=== PATIENT | female | born 1990 ===

== ENCOUNTER 2022-05-02 17:06 | Emergency (ER) | payer MEDICAID, OTHER ==
[~2022-05-02] VITALS: Ht 162.6 cm; Wt 72.0 kg
[2022-05-02] MEDS ORDERED: MORPHINE SULFATE 4 MG/ML SYR/VIAL IV ONE (17:30)
[2022-05-02] MEDS ORDERED: ONDANSETRON HCL 4 MG/2 ML VIAL IV ONE (17:30)
[2022-05-02] MEDS ORDERED: PANTOPRAZOLE 40 MG/10 ML VIAL INJ IV ONE (17:30)
[2022-05-02] MEDS ORDERED: SODIUM CHLORIDE 0.9% 1,000 ML IVB ONE (17:30)
[2022-05-02 17:44] VITALS: BP 126/75
[2022-05-02 18:01] LABS: Basophils # (auto) 0.1 10 ^3/uL (0-0.2); Eosinophils # (auto) 0.1 10 ^3/uL (0-0.8); Eosinophils % (auto) 2.2 % (0.0-7.0); Hematocrit 32.8 % (36.0-46.0); Hemoglobin 10.9 g/dL (12.2-16.2); Lymphocytes # (auto) 1.7 10 ^3/uL (0.4-5.4); Lymphocytes % (auto) 27.7 % (10.0-50.0); Mean Corpuscular Hemoglobin 27.1 pg (28.0-32.0); Mean Corpuscular Hgb Conc. 33.1 g/dL (32.0-36.0); Mean Corpuscular Volume 81.9 fL (80.0-100.0); Monocytes # (auto) 0.2 10 ^3/uL (0-1.3); Monocytes % (auto) 3.5 % (0.0-12.0); Neutrophils # (auto) 4.1 10 ^3/uL (1.6-8.6); Neutrophils % (auto) 65.6 % (37.0-80.0); Red Blood Cells 4.01 10^6/uL (4.0-5.20); Red Cell Distribution Width 12.8 % (11.8-14.3); White Blood Cell 6.3 10^3/uL (4.4-10.8)
[2022-05-02 18:01] LABS: Urine Bacteria NONE SEEN /hpf (None Seen); Urine Blood 2+ /uL (Negative); Urine Hyaline Cast FEW /lpf (0 - 2); Urine Specific Gravity 1.018 (1.001-1.035); Urine WBC 31 /hpf (0 - 5)
[2022-05-02 18:19] LABS: Albumin 3.5 g/dL (3.4-5.0); Calcium 8.4 mg/dL (8.5-10.1)
[2022-05-02 18:22] LABS: Bilirubin, Total 0.2 mg/dL (0.2-1.0)
[2022-05-02] MEDS ORDERED: cefTRIAXone 1GM/50ML D5W 50 ML IV ONE (19:30)
== END 2022-05-02 21:20 | disposition left against medical advice (07) ==
LOC: ER 17:06 → EDBD 17:06 → ER 21:20
DX: K80.20 Calculus of gallbladder without cholecystitis without obstruction (principal); N39.0 Urinary tract infection, site not specified
CPT/HCPCS: 36415; 76705; 80053; 81001; 82150; 83690; 84702; 85025; 96365; 99284; J0696; J7030